=== PATIENT | female | born 1940 | race Caucasian/White ===

== ENCOUNTER → 2021-12-19 13:44 | Outpatient (CLI) | payer MEDICARE, OTHER, SELFPAY ==
--- NOTE | 2021-12-19 13:48 | DI.RAD.S_ITS ---
PROCEDURE: XR LUMBAR SPINE MIN 4V INDICATIONS: NEUROPATHY TECHNIQUE: 5 views of the lumbar spine were acquired, including bilateral oblique views. COMPARISON: None. FINDINGS: Bones: Fixation hardware at L2-L4. No hardware fracture seen. There appears to be ankylosis at L2-L3 and L3-L4. 5 nonrib-bearing vertebrae are present. Scoliosis. No vertebral body compression fractures. No suspicious bony lesions. Bones appear osteopenic. Soft tissues: Overlying bowel gas pattern is normal. No suspicious soft tissue calcifications. IMPRESSION: Pedicle screw fixation at L2-L4. Bones appear osteopenic. Moderate degenerative change and scoliosis. Dictated by: Fer Acharya M.D. on 12/19/2021 at 17:58 Approved by: Fer Acharya M.D. on 12/19/2021 at 18:01
== END ==
PROVIDERS: PCP Family Medicine; Referring Provider Physical Medicine & Rehabilitation; Visit Provider Physical Medicine & Rehabilitation
DX: G62.9 Polyneuropathy, unspecified (principal); M41.9 Scoliosis, unspecified; M47.816 Spondylosis without myelopathy or radiculopathy, lumbar region; M48.061 Spinal stenosis, lumbar region without neurogenic claudication; G25.81 Restless legs syndrome; Z98.1 Arthrodesis status
CPT/HCPCS: 72110; 99215

== ENCOUNTER → 2021-12-27 12:49 | Outpatient (CLI) | payer MEDICARE, OTHER, SELFPAY ==
--- NOTE | 2021-12-27 12:51 | DI.MRI.S_ITS ---
PROCEDURE: MR LUMBAR SPINE WO CON INDICATIONS: L2 through L4 fusion, left L4 radiculopathy TECHNIQUE: Noncontrast sagittal T1 spin echo and T2 fast echo, sagittal STIR, and T2 fast spin echo through the lumbar spine. In cases with scoliosis, additional coronal T2 fast spin echo may be performed. COMPARISON: [facility], CR, XR LUMBAR SPINE MIN 4V, 12/19/2021, 13:51. [facility], MR, L-SPINE WITHOUT CONTRAST, 08/27/2012, 17:43. FINDINGS: Image quality: Excellent. Alignment and Curvature: There leftward curvature the lumbar spine apex L2. There is posterior fusion from L2 through L4. There is 3 mm retrolisthesis of L2 on L3, L3 on L4. Bone Marrow: Marrow is of normal overall signal. Mild reactive endplate changes are present L5-S1, L2-3. No acute vertebral body compression fractures. Spinal Cord: Conus medullaris terminates at the L2 level. Visualized cord demonstrates normal signal and size. Predominantly punctate T2 hyperintensities are present within the kidneys bilaterally. Larger foci appear consistent with simple cysts and are relatively unchanged compared to prior exam. Paraspinous Soft Tissues: No paravertebral masses. Discs: Moderate to severe multilevel disc desiccation is present most significant at L1-2, L2-3, L3-4. L1-L2: Mild disc bulge with minimal spinal stenosis, progressive. There is moderate left and minimal right foraminal narrowing with uncovertebral hypertrophy, slightly progressive. L2-L3: Postsurgical changes are present at this level. No spinal stenosis, markedly improved compared to prior exam. Foramina are poorly visualized secondary to significant artifact. There is likely at least mild if not [id number] foraminal narrowing bilaterally stable versus slightly progressive. L3-L4: Postsurgical changes are present. No spinal stenosis, markedly improved compared to prior exam. Foramina are poorly visualized secondary to artifact. However, there is felt to be likely moderate bilateral foraminal narrowing slightly progressive on the right compared to prior exam. L4-L5: Postsurgical changes are present. No spinal stenosis, markedly improved compared to prior exam. Severe left and moderate right foraminal narrowing with flattening of the exiting left L4 nerve root appearing progressive. L5-S1: Mild disc bulge with moderate spinal stenosis, progressive compared to prior exam. There is [id number] right and minimal left foraminal narrowing with prominent interval ligamentum flavum hypertrophy. Foraminal narrowing is slightly progressive. Previous right facet joint cyst is no longer visualized. IMPRESSION: Multilevel surgical changes demonstrating interval improvement of previous spinal stenosis. Multilevel foraminal narrowing most severe at L4-5, demonstrating areas of interval progression as above. 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 Dictated by: Keyonna Bradshaw M.D. on 12/27/2021 at 16:16 Approved by: Keyonna Bradshaw M.D. on 12/27/2021 at 16:22
== END ==
PROVIDERS: PCP Family Medicine; Referring Provider Physical Medicine & Rehabilitation; Visit Provider Physical Medicine & Rehabilitation
DX: M48.061 Spinal stenosis, lumbar region without neurogenic claudication (principal); M47.26 Other spondylosis with radiculopathy, lumbar region; Z98.1 Arthrodesis status
CPT/HCPCS: 72148

== ENCOUNTER 2022-01-12 10:16 | Outpatient (CLI) | payer MEDICARE, OTHER, SELFPAY ==
[2022-01-12] VITALS (8 sets, daily range): BP systolic 121–157; BP diastolic 56–71; PULSE 65–83; RESP 14–24; TEMP 36.8; O2SAT 96–99
--- NOTE | 2022-01-12 10:19 | DI.RAD.S_ITS ---
PROCEDURE: PAIN L/S TRANSFORAMINAL INJECT INDICATIONS: SPONDYLOSIS COMPARISON: [facility], CR, XR LUMBAR SPINE MIN 4V, 12/19/2021, 13:51. [facility], MR, MR LUMBAR SPINE WO CON, 12/27/2021, 13:15. [facility], RF, LUMBAR TRANSFORAMINAL EDD, 10/10/2013, 15:33. FINDINGS: Fluoroscopic spot filming was performed to verify placement of a spinal needle at the L5-S1 level, as labeled on the films. Appropriate location of the needle tip was confirmed by injection of iodinated contrast. IMPRESSION: No significant intraprocedural abnormality. Dictated by: Yao Guerin M.D. on 01/12/2022 at 15:36 Approved by: Yao Guerin M.D. on 01/12/2022 at 15:36
[2022-01-12] MEDS: MIDAZOLAM 2 MG/2 ML VIAL IV (11:42)
[2022-01-12] MEDS: BUPIVACAINE 0.25% (PF) VIAL 2 ML INJ (11:47)
[2022-01-12] MEDS: DEXAMETHASONE 10 MG/ML VIAL 20 MG INJ (11:48)
[2022-01-12] MEDS: IOPAMIDOL 15 ML VIAL 3 ML INJ (11:48)
[2022-01-12] MEDS: BETAMETHASONE 30 MG/5 ML MDV 6 MG INJ (11:48)
--- NOTE | 2022-01-12 12:02 | P.PCN_ITS ---
Date/Time/Diagnoses Date of procedure: 01/12/22 Time of procedure: 12:02 Pre-procedure diagnosis: 1. FORAMINAL STENOSIS WITH LE SYMPTOMS Post-procedure diagnosis: same Procedure Notes Procedure: 1. FLUOROSCOPICALLY GUIDED CONTRAST CONTROLLED TRANSFORAMINAL EPIDURAL STEROID INJECTION - Left L5/S1 Indications: [facility]bis is referred by Dr. Nova for treatment of Foraminal Stenosis with Left LE Symptoms Physician: Conner Au Total Fluoroscopy time (seconds): 9 Total sedation minutes: 12 Complications: none Procedure in detail & Post-procedure care: FINDINGS Foraminal Nerve Root Compression secondary to disc disease and facet hypertrophy DESCRIPTION OF PROCEDURE Following review of allergy and review of potential side effects and complications, including, but not necessarily limited to, infection, allergic reaction, local tissue breakdown, stroke, temporary or permanent nerve injury, paralysis, and possible , the patient indicated that the patient understood and agreed to proceed. An informed consent document was signed by the patient, witnessed by a nurse, and placed in the patient's chart. Additionally, other treatment options including medications, modalities, and physical therapy were reviewed with the patient. After review of previous anaesthesic history and IV conscious sedation the patient was deemed safe to proceed with today?s procedure with IV conscious sedation as ASA class II designation. Safety time-out was performed to confirm patient ID, procedure to be performed and site of procedure. IV sedation was accomplished with a combination of 2mg of Versed was administered by the RN after DO order, titrated to patient comfort during the course of the procedure while the patient remained responsive to all verbal commands In the prone position following sterile prep and drape of the lumbar region, the Left L5/S1 posterior neuroforamen was identified fluoroscopically. The skin was anesthetized via a 25-gauge 1.5-inch needle with 1% lidocaine solution. At this point, a 25-gauge 3.5-inch spinal needle was atraumatically introduced and advanced under fluoroscopic guidance through the posterior Left L5/S1 neuroforamen to approximately the anterior aspect of the canal. Depth was confirmed on lateral view. Following negative aspiration, injection of approximately 1.5 cc of Isovue 200 under live fluoroscopy in the AP view confir med excellent flow along the nerve root, into the epidural space without vascular or intrathecal uptake observed Radiological data, including multiple fluoroscopic views of the lumbosacral spine, reveal a spinal needle at the Left L5/S1 posterior neuroforamen. Subsequent views show flow of contrast material flowing superiorly and inferiorly along the nerve root confirming epidural flow. Subsequently, a test dose of 1.5cc of 1% lidocaine solution was administered and patient was observed for two minutes for signs or symptoms of complications, including abdominal pain, shortness of breath, bilateral upper or lower extremity weakness, nausea and vomiting, prior to steroid injection. At this point, a total of 3cc or 20mg of dexamethasone and 6mg of betamethasone was injected without incident. The procedure tolerated the procedure well without signs or symptoms of complications prior to transfer to the recovery area continued monitoring without incident. The patient was then transferred to the recovery area where they were observed for an appropriate time after the injection. The patient reported a VAS score of 7 prior to the procedure and a post-procedure VAS of 0. POST OP INSTRUCTIONS The patient was provided a Pain Log to continue to record their response to the target-specific procedure prior to follow-up visit with their referring phys ician. Additionally, specific post-injection care instructions and a contact number to our office were provided if concerns arise regarding possible complications associated with the procedure are suspected.
== END 2022-01-12 12:28 | disposition home or self-care (01) ==
LOC: RAD 10:17
PROVIDERS: PCP Family Medicine; Referring Provider Physical Medicine & Rehabilitation; Visit Provider Physical Medicine & Rehabilitation
DX: M48.07 Spinal stenosis, lumbosacral region (principal); M51.17 Intervertebral disc disorders with radiculopathy, lumbosacral region
CPT/HCPCS: 64483; 99152; J0702; J1100; J2250; J3490